=== PATIENT | female | born 1970 | race Caucasian/White ===

== ENCOUNTER 2017-11-21 14:25 | Outpatient (CLI) | payer OTHER ==
--- NOTE | 2017-11-21 16:38 | ULT ---
LEFT BREAST ULTRASOUND LIMITED: FINDINGS: Attention is paid to a palpable finding at 11 o'clock, 9 cm from the nipple. There is some asymmetri c echogenic glandular tissue in this region, which appears to account for the palpable finding. No s olid or cystic mass in this region. IMPRESSION: BI-RADS category 2-Benign findings. Asymmetric echogenic glandular tissue in the left breast, at 11 o'clock, 9 cm from the nipple, accounting for the palpable finding. Continued annual follow-up aprile lara mammograms. POS: OFF
== END 2017-11-21 14:26 | disposition home or self-care (01) ==
LOC: BICMAMMO 14:25
PROVIDERS: ATTEND Obstetrics & Gynecology
DX: N64.59 Other signs and symptoms in breast (principal); Z80.3 Family history of malignant neoplasm of breast
CPT/HCPCS: 77066; G0279

== ENCOUNTER 2020-02-19 14:34 | Outpatient (CLI) | payer OTHER ==
--- NOTE | 2020-02-19 15:33 | MMO ---
Bilateral MAMMO Bilat Diag [facility]. CLINICAL HISTORY: Patient is 49 years old and is seen for diagnostic exam,palpable abnormality and non-bloody discharge in the left breast. The patient has no family history of breast cancer. The patient has no personal history of cancer. VIEWS: The views performed were: bilateral craniocaudal with tomosynthesis; bilateral mediolateral oblique with tomosynthesis; and bilateral mediolateral with tomosynthesis. FILMS COMPARED: The present examination has been compared to prior imaging studies performed at [facility] on 07/09/2014, 10/27/2016, 11/21/2017 and 02/19/2020. This study has been interpreted with the assistance of computer-aided detection. MAMMOGRAM FINDINGS: The breasts are heterogeneously dense, which could obscure a lesion on mammography. Benign calcifications are noted bilaterally. No mammographic or sonographic abnormality is seen at the site of palpable concern in the left upper outer breast. There are no suspicious masses, suspicious calcifications, or new areas of architectural distortion. IMPRESSION: THERE IS NO MAMMOGRAPHIC EVIDENCE OF MALIGNANCY. A ROUTINE FOLLOW-UP MAMMOGRAM IN 1 YEAR IS RECOMMENDED. THE RESULTS OF THIS EXAM WERE SENT TO THE PATIENT. ACR BI-RADS Category 2 - Benign finding MAMMOGRAPHY NOTE: 1. A negative mammogram report should not delay a biopsy if a dominant of clinically suspicious mass is present. 2. Approximately 10% to 15% of breast cancers are not detected by mammography. 3. Adenosis and dense breasts may obscure an underlying neoplasm. Reported by: BRISA MARQUEZ MD Electonically Signed: [id number]
--- NOTE | 2020-02-19 15:50 | ULT ---
LIMITED LEFT BREAST ULTRASOUND: 02/19/20 HISTORY: Palpable abnormality at the 10-11 o'clock position of the left breast. FINDINGS: Correlation is made with mammogram of same date. Sonographic evaluation of the region of palpable concern at the 10-11 o'clock positions of the left b reast demonstrates no abnormality. IMPRESSION: BIRADS 2: Benign Finding(s) Routine annual screening mammography (for women over age 40). POS: OFF
== END 2020-02-19 14:35 | disposition home or self-care (01) ==
LOC: BICMAMMO 14:34
PROVIDERS: ATTEND Obstetrics & Gynecology
DX: N63.20 Unspecified lump in the left breast, unspecified quadrant (principal); N64.52 Nipple discharge
CPT/HCPCS: 77066; G0279